=== PATIENT | male | born 1940 | race Caucasian/White ===

== ENCOUNTER 2016-06-27 08:48 | Inpatient (IN) | payer MEDICARE, OTHER ==
[2016-06-27] VITALS (7 sets, daily range): BP systolic 117–134; BP diastolic 67–69; PULSE 61–85; RESP 18–19; TEMP 98.3; Ht 167.6 cm; Wt 47.8 kg
[~2016-06-27] VITALS: Ht 167.6 cm; Wt 47.8 kg
[2016-06-27 09:15] LABS: BASOPHILS % 0.5 % (0.0-2.0); EOSINOPHILS # 0.2 10^3/ul (0.0-0.5); HEMATOCRIT 41.3 % (42.0-52.0); HEMOGLOBIN 14.2 g/dl (14.0-18.0); LYMPHOCYTES # 1.2 10^3/ul (0.8-2.9); LYMPHOCYTES % 25.7 % (15.0-51.0); MEAN CORPUSCULAR HEMOGLOBIN 32.1 pg (29.0-33.0); MEAN CORPUSCULAR HGB CONC 34.4 g/dl (32.0-37.0); MEAN CORPUSCULAR VOLUME 93.2 fl (82.0-101.0); MEAN PLATELET VOLUME 7.4 fl (7.4-10.4); MONOCYTE # 0.5 10^3/ul (0.3-0.9); MONOCYTES % 10.8 % (0.0-11.0); NEUTROPHIL # 2.8 10^3/ul (1.6-7.5); PLATELET COUNT 296 10^3/UL (140-440); RED BLOOD COUNT 4.43 10^6/ul (4.70-6.10); RED CELL DISTRIBUTION WIDTH 13.2 % (11.5-14.5); UNCORRECTED WBC 4.8 10^3/ul (4.8-10.8); WHITE BLOOD COUNT 4.8 10^3/ul (4.8-10.8)
--- NOTE | 2016-06-27 09:22 | RADRPT ---
PROCEDURE: XR Chest. CLINICAL INDICATION: Chest pain TECHNIQUE: Chest AP portable COMPARISON: None available FINDINGS: The mediastinal structures are unremarkable. There is calcification of the thoracic aorta (consiste nt with atherosclerosis). The heart is normal in size and configuration. The pulmonary vascularity is normal. The lung awan are unremarkable. No consolidation is identified. The pleural spaces are unremarkable. The osseous structures are unremarkable. IMPRESSION: Calcification of the thoracic aorta (consistent with atherosclerosis). No evidence for active cardiopulmonary disease. RPTAT: HGDB .Martin Romero MD, Date Time Electronically viewed and signed by .Martin Romero MD, on 06/27/2016 09:22 .B/
[2016-06-27 09:24] LABS: POTASSIUM 3.7 mmol/L (3.5-5.1)
[2016-06-27 09:27] LABS: CONDITION 1; CREATININE 0.7 mg/dl (0.61-1.24)
[2016-06-27 09:28] LABS: CALCIUM 9.2 mg/dl (8.4-10.2)
[2016-06-27 09:33] LABS: INR 0.99; PROTIME 13.1 Sec (12.2-14.2)
[2016-06-27 09:42] LABS: TROPONIN-I 3.18 ng/ml (0.00-0.12)
--- NOTE | 2016-06-27 09:56 | ERA ---
ER Documentation Chief Complaint Date/Time DATE: 06/27/16 TIME: 09 Chief Complaint L SIDE NON PROVOKED CHEST PAIN FOR 1 WK. NO N./V. NO RECDENT URI HPI 75-year-old male presents to the emergency department complaining of chest discomfort for 1 week. Patient states that he has been having a nonspecific, non-provoked left-sided chest discomfort for 1 week. It is not crescendo or increasing. It is associated with no positional change, palpitations, fevers, chills, hemoptysis. He reports the pain is a 6/10. Patient had no preceding symptoms including no cough or sputum production. ROS All systems reviewed and are negative except as per history of present illness. Medications Home Meds Discontinued Reported Medications [None] No Conflict Check 07/11/12 [None] No Conflict Check 04/06/10 Allergies Allergies: Coded Allergies: No Known Allergy (Unverified , 06/27/16) PMhx/Soc History of Surgery: No Anesthesia Reaction: No Hx Neurological Disorder: No Hx Respiratory Disorders: No Hx Cardiac Disorders: No Hx Psychiatric Problems: No Hx Miscellaneous Medical Probl: No Hx Alcohol Use: No Hx Substance Use: No Hx Tobacco Use: No Smoking Status: Never smoker FmHx Noncontributory for chief complaint Physical Exam Vitals Vital Signs Date Time Temp Pulse Resp B/P Pulse Ox O2 Delivery O2 Flow Rate FiO2 06/27/16 09:11 Nasal Cannula 2 06/27/16 09:05 98.3 96 20 138/81 97 Room Air 06/27/16 08:52 97.6 63 20 130/63 99 Physical Exam GENERAL: The patient is well developed and appropriate for usual state of health in no apparent distress HEENT: Pupils equal, round, and reactive to light. EOMI. There is no scleral icterus. NECK: C-spine is soft and supple, there is no meningismus. There is no cervical lymphadenopathy. LUNGS: Clear to auscultation bilaterally. There are no rales, wheezes or rhonchi. HEART: Regular rate and rhythm, no murmurs, clicks, rubs or gallops. ABDOMEN: Soft, non-tender, non-distended. There are bowel sounds in all four quadrants. No rebound or guarding. EXTREMITIES: There is no peripheral cyanosis or edema. No focal swelling or erythema. NEURO: The patient moves all four extremities with 5/5 strength. Cranial nerves II - XII are intact. Normal gait. Alert and oriented SKIN: There is no apparent rash or petechiae. HEME/LYMPHATIC: There is no evidence of excessive bruising or lymphedema. PSYCHIATRIC: The patient does not appear anxious or depressed. Result Diagram: 06/27/16 0900 06/27/16 0900 Results 24 hrs Laboratory Tests Test 06/27/16 09:00 Activated Partial Thromboplast Time 31.0Sec Anion Gap 18 Basophils # 0.010^3/ul Basophils % 0.5% Blood Urea Nitrogen 13mg/dl Calcium Level 9.2mg/dl Carbon Dioxide Level 29mmol/L Chloride Level 101mmol/L Creatinine 0.70mg/dl Eosinophils # 0.210^3/ul Eosinophils % 5.0% Glucose Level 102mg/dl Hematocrit 41.3% Hemoglobin 14.2g/dl INR International Normalized Ratio 0.99 Lymphocytes # 1.210^3/ul Lymphocytes % 25.7% Mean Corpuscular Hemoglobin 32.1pg Mean Corpuscular Hemoglobin Concent 34.4g/dl Mean Corpuscular Volume 93.2fl Mean Platelet Volume 7.4fl Monocytes # 0.510^3/ul Monocytes % 10.8% Neutrophils # 2.810^3/ul Neutrophils % 58.0% Nucleated Red Blood Cells # 0.010^3/ul Nucleated Red Blood Cells % 0.0/100WBC Platelet Count 54002^3/UL Potassium Level 3.7mmol/L Prothrombin Time 13.1Sec Prothrombin Time Ratio 1.0 Red Blood Count 4.4310^6/ul Red Cell Distribution Width 13.2% Sodium Level 144mmol/L Troponin I 3.180ng/ml White Blood Count 4.810^3/ul Current Medications Medications (Trade) Dose Ordered Sig/Gonzalo Route PRN Reason Start Time Stop Time Status Last Admin Dose Admin Aspirin (Aspirin) 325 mg ONCE ONCE PO 06/27/16 10:00 06/27/16 10:01 Procedures/MDM Patient was taken to a room, seen and evaluated. Comfort measures were initiated. Diagnostic tests were ordered and reviewed. 3 LEAD RHYTHM STRIP: Normal sinus rhythm without ectopy EK lead EKG reviewed by myself: Normal Sinus Rhythm Normal [place] and intervals Minimal ST and T-wave changes in leads II, III, and aVF with less than [address] elevation. No reciprocal changes noted. Impression: Abnormal EKG consistent with possible inferior ischemia 12-lead EKG was then repeated and interpreted by myself: Normal Sinus Rhythm Normal [place] and intervals Minimal ST and T-wave changes in leads II, III, and aVF with less than [address] elevation. No reciprocal changes noted. Impression: Abnormal EKG consistent with possible inferior ischemia RADIOLOGY: reviewed with the radiologist CONSULTATION: Dr. Mckeon was consulted after review of the first and repeat EKG. These were faxed to him. We were in agreement that the patient would not be taken to PCI immediately, but would be done urgently. No heparin or lovenox was requested. Stat ECHO was done. hospitalist was notified for admission REEVALUATION: Patient remained comfortable and hemodynamically stable in the emergency department MEDICAL DECISION MAKING: Patient presents with chest pain of uncertain etiology. Differential diagnosis considered includes acute myocardial infarction , pulmonary embolism, as well as vascular and pulmonary concerns. I have reviewed the patient's clinical risk factors, EKG, lab studies and imaging. At this time, patient's EKG is consistent and concerning for inferior ischemic changes and his troponin is elevated after 1 week of pain. In consultation with the insurance claim approver, patient will be taken urgently to the Electric Engine Mechanic for further intervention and study. Departure Diagnosis: Primary Impression: Non-STEMI (non-ST elevated myocardial infarction) MILTON DURON Jun 27, 2016 09:56
[2016-06-27] MEDS ORDERED: ASPIRIN 325 MG TAB PO ONE (10:00)
--- NOTE | 2016-06-27 11:50 | RADRPT ---
Echocardiogram Report Patient Name: ADEOLA ROBERT Gender: Male Date: 1940 Study Date: 27-Jun-2016 Paper Cup Machine Operator: Jeannine Almonte RDCS Location: [facility] Ref. Physician: MILTON DURON Quality: Adequate Procedures: Transthoracic echocardiogram with complete 2D, M-Mode, and doppler examination. Indications: NSTEMI. 2D/M Mode Doppler Measurement Value Normal Ranges Measurement Value Normal Ranges LVIDd 2D 5.2 3.5 - 5.6 cm AV Peak Inder 1.2 m/sec LVIDs 2D 3.3 2.1 - 4.1 cm AV Peak PG 5.5 mmHg LVPWd 2D 0.8 0.6 - 1.1 cm AI Peak PG 33.5 mmHg IVSd 2D 0.8 0.6 - 1.1 cm AI Peak Inder 2.9 m/sec AoR Diam 2D 3.0 2.0 - 3.7 cm AI PHT 488.3 msec EDV 2D 127.2 cm3 LVOT Peak Inder 1.0 m/sec ESV 2D 35.4 cm3 LVOT Peak PG 3.8 mmHg LA Dimen 2D 3.1 2.3 - 4.0 cm MV E Peak Inder 0.7 m/sec MV A Peak Inder 0.8 m/sec MV E/A 0.9 MV Decel Time 123 msec MV Decel [place] 6 MV E/A 0.9 TR Peak Inder 2.3 m/sec TR Peak PG 21.4 mmHg RVSP 24.0 mmHg Findings Left Ventricle: Lower limits of normal systolic function. Normal left ventricular cavity size. Normal left ventricular wall thickness. Ejection fraction is visually estimated at 50 %. Tissue Doppler/Mitral Doppler indices are consistent with impaired relaxation (Stage I diastolic dysfunction). Right Ventricle: Normal right ventricular size. Normal right ventricular systolic function. Left Atrium: The left atrium is normal in size. Right Atrium: The right atrium is normal in size. Mitral Valve: Normal appearance and function of the mitral valve with trace physiologic regurgitation. Aortic Valve: No hemodynamically significant aortic stenosis by doppler. Aortic cusps appear mildly calcified. Mild aortic valve regurgitation. Tricuspid Valve: Normal appearance of the tricuspid valve. Estimated peak PA systolic pressure 24 mmHg. There is trace tricuspid regurgitation. Pulmonic Valve: Pulmonic valve not well visualized. Pericardium: Normal pericardium with no significant pericardial effusion. Aorta: Normal aortic root. IVC: Normal size and normal respiratory collapse consistent with normal right atrial pressure. Conclusions 1.Lower limits of normal systolic function. Normal left ventricular cavity size. Normal left ventricular wall thickness. Ejection fraction is visually estimated at 50 %with mild apical inferior and lateral wall hyokinesis .. Tissue Doppler/Mitral Doppler indices are consistent with impaired relaxation (Stage I diastolic dysfunction). 2.Normal appearance and function of the mitral valve with trace physiologic regurgitation. 3.No hemodynamically significant aortic stenosis by doppler. Aortic cusps appear mildly calcified. Mild aortic valve regurgitation. 4.Normal appearance of the tricuspid valve. Estimated peak PA systolic pressure 24 mmHg. There is trace tricuspid regurgitation. Electronically Signed By: Remi Mckeon 27-Jun-2016 11:49:36 -0800 Patient Name: ADEOLA ROBERT Study Date: 27-Jun-2016 [id number]
[2016-06-27] MEDS ORDERED: HEPARIN 1000 UNITS/ML 10 ML INJ IV ONE (12:00)
[2016-06-27] MEDS ORDERED: SOD CHLORIDE 0.45% 1,000 ML IV SCH (12:03)
[2016-06-27] MEDS ORDERED: ONDANSETRON 4 MG TAB PO PRN (12:30)
[2016-06-27] MEDS ORDERED: ACETAMINOPHEN 325 MG TAB PO PRN ×2 (12:30→14:30)
[2016-06-27] MEDS ORDERED: DOCUSATE SODIUM 100 MG CAP PO PRN (12:30)
[2016-06-27] MEDS ORDERED: NITROGLYCERIN (SL) 0.4 MG TAB SL PRN (12:30)
[2016-06-27] MEDS ORDERED: LORAZEPAM 2 MG INJ IV PRN (12:30)
[2016-06-27] MEDS ORDERED: morphine 2 MG INJ IV PRN ×2 (12:30→14:30)
[2016-06-27] MEDS ORDERED: BISACODYL 10 MG SUPP PR PRN (12:30)
--- NOTE | 2016-06-27 12:57 | CONS ---
DATE OF ADMISSION: 06/27/2016 DATE OF CONSULTATION: 06/27/2016 REFERRING PHYSICIAN:. ____ REASON FOR CONSULTATION: Acute myocardial infarction. CHIEF COMPLAINT: Left-sided chest pain. HISTORY OF PRESENT ILLNESS: History was obtained from the patient, discussion with ____ and review of the chart. This is a very pleasant 75-year-old gentleman with history of lung disease for many y ears who has had left-sided chest pain over the past week. The patient is an extremely poor histori an, difficult to get a good history from him. Said he has had intermittent chest pain. Could not e xplain an exacerbating factor to it. The pain is very mild, 1/. Currently, he is chest pain free , in fact. He came to the emergency room with tachycardia. There were some nonspecific ST changes with MO depression noted in inferior lead and the EKG. The EKG was reviewed. Patient was chest ian n-free. Labs were reviewed. Troponin came out positive. Echocardiogram was also done which was re viewed, and no evidence of pericardial effusion noted to be concerned about pericarditis. It was a technically difficult study but appeared to have some minimal wall motion abnormality noted on echo. PAST MEDICAL HISTORY: History of dyslipidemia as well as history of lung disease. Detail is unclea r. MEDICATIONS AT HOME: None. SOCIAL HISTORY: He does not smoke or drink. FAMILY HISTORY: Denies any history of coronary artery disease. ALLERGIES: NO REPORTED DRUG ALLERGIES. REVIEW OF SYSTEMS: He denied all other except for above-mentioned. PHYSICAL EXAMINATION: GENERAL: Appeared to be calm, in no acute distress. VITAL SIGNS: Temperature 98.3, heart rate of 76, blood pressure 124/73, respiration rate of 20, sat urating 98%. HEENT: Normocephalic, atraumatic. No acute distress. Pupils equal and round. CARDIOVASCULAR: Regular rate and rhythm. Systolic murmur, grade I. PULMONARY: With no wheezes or rhonchi. GASTROINTESTINAL: Soft, nontender. EXTREMITIES: No significant lower extremity edema. NEUROLOGIC: Awake, alert, oriented x3. PSYCHIATRIC: Calm, pleasant. LABORATORY: Sodium 144, potassium 3.7, BUN of 13, creatinine 0.7, glucose 102. Troponin of 3.18. WBC of 4.8, hemoglobin 14.2, platelets 296. Chest x-ray was personally reviewed, which shows calcif ication of thoracic aorta. No evidence of acute cardiopulmonary disease. Echocardiogram was person ally reviewed, which was a technically difficult study, which showed normal LV size and ejection fra ction of probably about 50%. There is apical inferior and some lateral wall, possibly mild hypokine sis, although a technically difficult study. No pericardial effusion noted. EKG ____ was personally reviewed. Initially showed sinus tachycardia with MO depression inferiorly. ASSESSMENT AND PLAN: 1. Cqf-VM-rgedsybok myocardial infarction. 2. Chest pain secondary to above. 3. Borderline hypertension. 4. History of dyslipidemia. 5. History of "lung disease". RECOMMENDATIONS: Aspirin has been given. Heparin bolus will be given. Given his symptoms and abno rmal troponin, the patient will be taken to the cardiac catheterization for left heart catheterizati on, coronary angiogram, ____ percutaneous coronary intervention today as soon as the laborer car barn is keo ilable. Currently an intervention is being done. ____ was discussed with the patient through a tra nslator in detail. Risks included laryngeal infection, vascular complication, bleeding complication , ME, stroke, arrhythmia, renal failure, etc., discussed with the patient. Patient consented to pro cedure. Dictated By: JOSÉ MIGUEL HUTTON/NICOLE Conf#: [id number] DID#: [id number]
[2016-06-27] MEDS ORDERED: SOD CHLORIDE 0.9% 1,000 ML IV SCH (14:15)
[2016-06-27] MEDS ORDERED: OXYCODONE/ACETAMINOPHEN (5/325) TAB PO PRN (14:30)
[2016-06-27 14:50] LABS: CK-MB 18.7 ng/ml (0.0-2.4); TROPONIN-I 2.41 ng/ml (0.00-0.12)
--- NOTE | 2016-06-27 14:56 | SP ---
DATE OF PROCEDURE: 06/27/2016 PROCEDURE: 1. Left heart catheterization. 2. Selective right and left coronary angiography. COLLEGE TUTOR: José Miguel Mckeon MD INDICATIONS: This is a 75-year-old gentleman who presented with chest pain, abnormal EKG, abnormal troponin of 3.18, consistent with non-ST elevation myocardial infarction. The patient's echo also s hows wall motion abnormalities as well. FINDINGS: 1. Left main coronary artery is normal. 2. Left anterior descending is a vessel, wraps around the apex, is normal. 3. Left circumflex artery is a moderate sized vessel, is nondominant. It has no significant stenos is. 4. Ramus intermedius is a small vessel with probably about 50% ostial stenosis. 5. Right coronary artery is a large, dominant vessel. Ostially, proximally has about 40% to 50% st enosis versus spasm. 6. LV systolic pressure was 133, LVEDP of 14, aortic pressure with pullback is 118/53. LV gram vito wed ejection fraction of probably about 45% to 50% with apical wall, especially inferior apical wall hypokinesis. DESCRIPTION OF PROCEDURE: Written informed consent was obtained after risks and benefits were discu ssed with the patient in detail. The patient went to the cardiac catheterization technologist and placed in the supine position . Right and left groins were prepped and draped in sterile fashion. Right groin area was anestheti zed with 1% lidocaine. Using modified Seldinger technique, 6 [place] sheath was placed in the right femoral artery. A JL4 catheter was advanced and engaged in the left main coronary artery and angiog susan was obtained. JR4 catheter was advanced and engaged in the right coronary artery and angiogram was obtained. Pigtail was advanced and engaged in the left main, hemodynamics recorded. LV gram pe rformed. Pullback aortic pressure was measured. Catheter and Glidewire were removed. Sheath is to be removed soon. IMMEDIATE COMPLICATIONS: None. CONCLUSION: Coronary angiography showed no significant flow-limiting obstruction. Left ventriculog susan showed wall motion abnormality consistent with possible myopericarditis versus Takotsubo disease versus others. RECOMMENDATIONS: Medical therapy. Dictated By: JOSÉ MIGUEL HUTTON/NICOLE Conf#: [id number] DID#: [id number] CC: VIRGILIO PERLA MD;*[facility]*
--- NOTE | 2016-06-27 16:25 | HP ---
DATE OF ADMISSION: 06/27/2016 MIXING ROLL OPERATOR: Cardiology. CHIEF COMPLAINT: Chest discomfort x1 week. HISTORY OF PRESENT ILLNESS: This is a very pleasant 75-year-old gentleman with a past medical histo ry of pneumonia at a young age, prostate cancer, status post total prostatectomy, status post chemot herapy [id number] 10years ago, who presents to [facility] Emergency Room having 1 week of ches t discomfort which was not associated with any shortness of breath or diaphoresis. Upon arrival to the emergency room the patient's EKG showed normal sinus rhythm, normal axis, minimal ST and T-wave changes in leads II, III, and aVF, and less than 1-mm ST elevation. The patient's troponin was foun d to be elevated at 3.180. Cardiology was consulted. The patient was taken to the cardiac catheter ization laboratory, where he was treated with aspirin, heparin and normal saline. During the course of the laborer concrete paving, the patient was found to have normal coronaries, with wall motion abnormality, with possible myopericarditis or Takotsubo. The patient has been transferred to the recovery room and at this time the patient has been admitted to the telemetry floor for further evaluation and treatment . At this time the patient denies having any chest pain, shortness of breath, nausea, vomiting or d iarrhea. No headache, dizziness, numbness, no change in visual acuity, diplopia, or photophobia. N o abdominal pain, no neck pain, no restricted range of motion. No recent travel history. No sick c ontacts. A 12 review of systems has been found to be negative. PAST MEDICAL AND SURGICAL HISTORY: As above, per HPI. MEDICATIONS: None. SOCIAL HISTORY: Negative x3 for smoking, alcohol and illicit drugs. FAMILY HISTORY: Positive for hypertension. No history of coronary artery disease or heart attack. REVIEW OF SYSTEMS: As above, per HPI, otherwise 12 review of systems was found to be negative. PHYSICAL EXAMINATION: VITAL SIGNS: Temperature 98.3, pulse 71, respirations 19, blood pressure 113/69, saturation 97% on room air. GENERAL APPEARANCE: The patient is lying in bed comfortably, without any distress. He is awake, al ert, oriented. He is able to answer my questions properly. EYES AND ENT: Conjunctivae and lids are normal. Pupils are normal. Extraocular is normal. Hearin g is normal. Lips and gums are normal. Mucous is moist. NECK: Supple. Trachea is midline. No lymphadenopathy. RESPIRATORY: Respiratory effort is normal. Clear to auscultate bilaterally. CARDIOVASCULAR: Normal S1, S2. Regular rhythm and rate. No murmur, no bruits, no edema. Peripher al pulses and radial pulses are palpable. Cap refill is normal. CHEST: Normal expansion of thorax during inspiration. GASTROINTESTINAL: Abdomen is soft, nontender, not distended. Bowel sounds present. No guarding, n o rebound. GENITOURINARY: Deferred. MUSCULOSKELETAL: Upper and lower extremities are within normal limits. Full range of motion. NEUROLOGIC: Cranial nerves II through XII are grossly intact. PSYCHIATRIC: Normal judgment and insight. Alert and oriented x3. Mood and affect is normal. LABORATORY WORK: Sodium 144, potassium 3.7, chloride 101, bicarbonate 29, BUN 13, creatinine 0.70, glucose 102, calcium 9.2. Creatinine kinase 1,277. Troponin 3.180 and 2.410. WBC 4.8, hemoglobin 1 4.3, hematocrit 41.3, platelets 296. ASSESSMENT AND PLAN: 1. Chest pain, likely secondary to myopericarditis versus Takotsubo. The patient is status post le ft heart catheterization, with normal coronaries. Continue aspirin and beta kathe. The patient at this time is asymptomatic, without any chest pain. 2. Mild rhabdomyolysis with a creatine kinase of 1,277. Will place the patient on IV fluid. Will f ollow up CPK q.6h. 3. History of prostate cancer, status post prostatectomy. Stable. 4. Will continue to monitor the patient closely. 5. Further recommendations, management and treatment as per clinical course. 6. Deep venous thrombosis prophylaxis. On heparin. 7. For gastrointestinal prophylaxis, on a proton pump inhibitor. Total amount of time spent on evaluation of patient on admission workup was 40 minutes. Dictated By: VIRGILIO KELLOGG/NICOLE Conf#: [id number] DID#: [id number]
[2016-06-27] MEDS: METOPROLOL (XL) 25 MG TAB PO SCH (18:35)
[2016-06-27] MEDS ORDERED: ATORVASTATIN 40 MG TAB PO SCH (21:00)
[2016-06-27 21:09] LABS: CK-MB 20.8 ng/ml (0.0-2.4); TROPONIN-I 2.7 ng/ml (0.00-0.12)
[2016-06-27] MEDS: HEPARIN 5,000 UNIT/0.5 ML SYG SC SCH (22:46)
[2016-06-28] VITALS (11 sets, daily range): BP systolic 111–134; BP diastolic 57–64; PULSE 68–81; RESP 16–20
[2016-06-28 01:59] LABS: CK-MB 16.2 ng/ml (0.0-2.4); TROPONIN-I 2.41 ng/ml (0.00-0.12)
[2016-06-28] MEDS: ASPIRIN (EC) 81 MG TAB PO SCH (09:58)
[2016-06-28] MEDS: PANTOPRAZOLE (EC) 40 MG TAB PO SCH (09:58)
[2016-06-28] MEDS: METOPROLOL (XL) 25 MG TAB PO SCH (09:59)
[2016-06-28] MEDS: HEPARIN 5,000 UNIT/0.5 ML SYG SC SCH ×2 (10:02→21:16)
[2016-06-28 10:10] LABS: BASOPHILS % 0.3 % (0.0-2.0); EOSINOPHILS # 0.2 10^3/ul (0.0-0.5); EOSINOPHILS % 3.8 % (0.0-7.0); HEMOGLOBIN 12.8 g/dl (14.0-18.0); LYMPHOCYTES # 0.6 10^3/ul (0.8-2.9); LYMPHOCYTES % 15.3 % (15.0-51.0); MEAN CORPUSCULAR HEMOGLOBIN 32.1 pg (29.0-33.0); MEAN CORPUSCULAR HGB CONC 34.5 g/dl (32.0-37.0); MEAN CORPUSCULAR VOLUME 93.2 fl (82.0-101.0); MEAN PLATELET VOLUME 7.5 fl (7.4-10.4); MONOCYTE # 0.3 10^3/ul (0.3-0.9); MONOCYTES % 6.9 % (0.0-11.0); NEUTROPHILS % 73.7 % (39.0-77.0); PLATELET COUNT 278 10^3/UL (140-440); RED BLOOD COUNT 3.97 10^6/ul (4.70-6.10); RED CELL DISTRIBUTION WIDTH 13.3 % (11.5-14.5); UNCORRECTED WBC 4.1 10^3/ul (4.8-10.8); WHITE BLOOD COUNT 4.1 10^3/ul (4.8-10.8)
[2016-06-28 10:16] LABS: CONDITION 1
[2016-06-28 10:33] LABS: ALBUMIN 3.6 g/dl (3.3-4.9)
[2016-06-28 10:34] LABS: POTASSIUM 3.7 mmol/L (3.5-5.1)
[2016-06-28 10:35] LABS: CHOL/HDL RATIO 3.7 RATIO; MAGNESIUM 1.8 mg/dl (1.7-2.5)
[2016-06-28 10:36] LABS: ALBUMIN/GLOBULIN RATIO 1.12; BILIRUBIN,INDIRECT 0.2 mg/dl (0-1.1); BILIRUBIN,TOTAL 0.2 mg/dl (0.2-1.3); CREATININE 0.59 mg/dl (0.61-1.24); TOTAL PROTEIN 6.8 g/dl (6.1-8.1)
[2016-06-28 10:37] LABS: CALCIUM 8.6 mg/dl (8.4-10.2)
[2016-06-28 11:15] LABS: THYROID STIMULATING HORMONE 0.759 MIU/L (0.465-4.680)
--- NOTE | 2016-06-28 14:42 | PN ---
Date/Time of Note Date/Time of Note DATE: 06/28/16 TIME: 14:37 Assessment/Plan Lines/Catheters IV Catheter Type (from [facility]): Peripheral IV Urinary Cath still in place: No Assessment/Plan Chief Complaint/Hosp Course Assessment and plan 1. Chest pain. Patient still with elevated troponin. Status post left heart catheterization with normal reported coronaries. [employer] Operator following. Suspect myopericarditis vs. Takotsubo. Continue on antiplatelet and beta kathe. Follow-up with cardiology recommendations 2. Mild rhabdomyolysis suspect secondary to #1. Continue on IV hydration 3. Prostate cancer. Patient is status post prostatectomy. Patient be followed up as outpatient for this DVT prophylaxis: Heparin GERD prophylaxis: PPI Disposition and plan: Still with elevated troponin. Follow-up with cardiology recommendations. Discharge when medically stable and cleared by consultants Discussed plan fo care with Dr. Mcmillan Problems: Subjective 24 Hr Interval Summary Free Text/Dictation Denies any chest pain. Appears comfortable at this time. Exam/Review of Systems Vital Signs Vitals Vital Signs Date Time Temp Pulse Resp B/P Pulse Ox O2 Delivery O2 Flow Rate FiO2 06/28/16 12:24 69 06/28/16 11:52 97.8 18 113/58 95 06/27/16 15:05 2.0 06/27/16 14:20 Room Air Intake and Output 06/27/16 06/27/16 06/28/16 14:59 22:59 06:59 Intake Total 240 ml Output Total 800 ml Balance -560 ml Exam General: No acute signs or symptoms of distress Eyes: pupils equal round, Anicteric sclera Neck: Supple nontender, no JVD Cardiac: S1, S2 auscultated, regular rhythm and rate Pulmonary: No coarse rhonchi or breathing auscultated GI: Abdomen soft nontender nondistended, bowel sounds active Extremities: No edema bilateral lower extremities Skin: Clean dry and intact Neurologic: Alert to person place and time and situation Results Result Diagram: 06/28/16 0948 06/28/16 0948 Results 24 hrs Laboratory Tests Test 06/27/16 20:16 06/28/16 00:45 06/28/16 09:48 Creatine Kinase 1148 H 1068 H Creatine Kinase Index 1.8 1.5 Creatinine Kinase MB (Mass) 20.80 H 16.20 H Troponin I 2.700 *H 2.410 *H Alanine Aminotransferase (ALT/SGPT) 44 Albumin 3.6 Albumin/Globulin Ratio 1.12 Alkaline Phosphatase 95 Anion Gap 14 Aspartate Amino Transf (AST/SGOT) 73 H Basophils # 0.0 Basophils % 0.3 Blood Urea Nitrogen 13 Calcium Level 8.6 Carbon Dioxide Level 27 Chloride Level 103 Cholesterol Level 170 Cholesterol/HDL Ratio 3.7 Creatinine 0.59 L Direct Bilirubin 0.00 Eosinophils # 0.2 Eosinophils % 3.8 Free Thyroxine 1.22 Globulin 3.20 Glucose Level 162 HDL Cholesterol 45 Hematocrit 37.0 L Hemoglobin 12.8 L Indirect Bilirubin 0.2 LDL Cholesterol, Calculated 105 Lymphocytes # 0.6 L Lymphocytes % 15.3 Magnesium Level 1.8 Mean Corpuscular Hemoglobin 32.1 Mean Corpuscular Hemoglobin Concent 34.5 Mean Corpuscular Volume 93.2 Mean Platelet Volume 7.5 Monocytes # 0.3 Monocytes % 6.9 Neutrophils # 3.0 Neutrophils % 73.7 Nucleated Red Blood Cells # 0.0 Nucleated Red Blood Cells % 0.0 Platelet Count 278 Potassium Level 3.7 Red Blood Count 3.97 L Red Cell Distribution Width 13.3 Sodium Level 140 Thyroid Stimulating Hormone (TSH) 0.759 Total Bilirubin 0.2 Total Protein 6.8 Triglycerides Level 100 White Blood Count 4.1 L Medications Medications Current Medications Ondansetron HCl (Zofran Tab) 4 mg Q6H PRN PO NAUSEA AND/OR VOMITING; Start at 12:30 Nitroglycerin (Nitroglycerin (Sl Tab) 0.4 Mg) 1 tab Q5M PRN SL CHEST PAIN; Start 06/27/16 at 12:30 Acetaminophen (Tylenol Tab) 650 mg Q6H PRN PO PAIN LEVEL 1-3 OR FEVER; Start at 12:30 Morphine Sulfate (morphine) 2 mg Q4H PRN IV PAIN LEVEL 7-10; Start 06/27/16 at 12:30 Lorazepam (Ativan) 1 mg Q8H PRN IV ANXIETY; Start 06/27/16 at 12:30 Docusate Sodium (Colace) 100 mg Q12H PRN PO CONSTIPATION; Start 06/27/16 at 12: 30 Bisacodyl (Dulcolax Supp) 10 mg DAILY PRN NV CONSTIPATION; Start 06/27/16 at 12 :30 Pantoprazole (Protonix Tab) 40 mg DAILY@06 PO Last administered on 06/28/16 09 :58; Admin Dose 40 MG; Start 06/28/16 at 06:00 Heparin Sodium (Porcine) (Heparin (5000 Units/0.5 ml)) 5,000 unit Q12 SC Last administered on 06/28/16 10:02; Admin Dose 5,000 UNIT; Start 06/27/16 at 21:00 Miscellaneous Information (* Miscellaneous Pharmacy Order) Hold all Metformin ... ONCE XX ; Start 06/27/16 at 14:30; Stop 06/29/16 at 14:29 Aspirin (Halfprin) 81 mg DAILY PO Last administered on 06/28/16 09:58; Admin Dose 81 MG; Start 06/28/16 at 09:00 Acetaminophen (Tylenol Tab) 650 mg Q4H PRN PO NON-CARDIAC PAIN LEVEL 1-3; Start 06/27/16 at 14:30 Oxycodone/ Acetaminophen (Percocet (5/ 325)) 1 tab Q4H PRN PO REPORTED NON- CARDIAC PAIN 4-7; Start 06/27/16 at 14:30 Morphine Sulfate (morphine) 1 mg Q1H PRN IV PAIN NOT RELIEVED BY OTHERS; Start 06/27/16 at 14:30 Metoprolol Succinate (Toprol Xl) 12.5 mg DAILY PO Last administered on 09:59; Admin Dose 12.5 MG; Start 06/27/16 at 14:30 JUDIT RODRIGUEZ Jun 28, 2016 14:42
[2016-06-28] MEDS: SOD CHLORIDE 0.9% 1,000 ML IV SCH (15:00)
--- NOTE | 2016-06-28 17:41 | PN ---
DATE: 06/28/2016 CARDIOLOGY FOLLOWUP SUBJECTIVE: Discussed with the staff. Rhythm strip was reviewed. The patient remains in sinus rhy thm. No chest pain or pressure, no palpitations. ____, no groin pain, no bleeding. MEDICATIONS: Reviewed. PHYSICAL EXAMINATION: VITAL SIGNS: Temperature 97.1, heart rate of 70, blood pressure 190/58, respiration rate of 18, sat urating 97%. HEENT: Normocephalic, atraumatic. Pupils are equal and round. CARDIOVASCULAR: Regular rate and rhythm. PULMONARY: With no wheezes heard. GASTROINTESTINAL: Soft, nontender. EXTREMITIES: No significant lower extremity edema. NEUROLOGIC: Awake and alert. PSYCHIATRIC: Calm, pleasant. VASCULAR: ____, no bleeding, no hematoma, no bruit. LABORATORY: WBC of 4.1, hemoglobin 12.8, platelets 78. Sodium 140, potassium 3.7, BUN of 13, creat inine 0.59, glucose 169. Troponin has come down to 2.4 with a CK of 1068. MB fraction of 16.2. Ch olesterol 170, LDL 105, HDL of 45. ASSESSMENT AND PLAN: 1. Chest pain has resolved. 2. Mildly abnormal troponin, probably related to myopericarditis. 3. 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 4. History of prostate cancer, status post prostatectomy. RECOMMENDATIONS: We will continue with the current cardiac care. Off of statin due to his elevated CK. Discharge planning is in process. The patient was scheduled for outpatient followup with me. Dictated By: JOSÉ MIGUEL HUTTON/NICOLE Conf#: [id number] DID#: [id number]
[2016-06-29] VITALS (9 sets, daily range): BP systolic 98–151; BP diastolic 44–69; PULSE 60–76; RESP 18–20
[2016-06-29] MEDS: SOD CHLORIDE 0.9% 1,000 ML IV SCH (04:13)
[2016-06-29] MEDS: PANTOPRAZOLE (EC) 40 MG TAB PO SCH (05:17)
[2016-06-29 07:30] LABS: POTASSIUM 4.1 mmol/L (3.5-5.1)
[2016-06-29 07:33] LABS: CREATININE 0.61 mg/dl (0.61-1.24)
[2016-06-29 07:34] LABS: CALCIUM 8.2 mg/dl (8.4-10.2); MAGNESIUM 1.9 mg/dl (1.7-2.5)
[2016-06-29 07:35] LABS: BASOPHILS % 0.4 % (0.0-2.0); EOSINOPHILS # 0.2 10^3/ul (0.0-0.5); HEMATOCRIT 35.2 % (42.0-52.0); HEMOGLOBIN 12.1 g/dl (14.0-18.0); LYMPHOCYTES % 20.7 % (15.0-51.0); MEAN CORPUSCULAR HEMOGLOBIN 32.3 pg (29.0-33.0); MEAN CORPUSCULAR HGB CONC 34.5 g/dl (32.0-37.0); MEAN CORPUSCULAR VOLUME 93.6 fl (82.0-101.0); MEAN PLATELET VOLUME 7.9 fl (7.4-10.4); MONOCYTE # 0.4 10^3/ul (0.3-0.9); MONOCYTES % 8.7 % (0.0-11.0); NEUTROPHIL # 3.1 10^3/ul (1.6-7.5); NEUTROPHILS % 65.2 % (39.0-77.0); PLATELET COUNT 261 10^3/UL (140-440); RED BLOOD COUNT 3.76 10^6/ul (4.70-6.10); RED CELL DISTRIBUTION WIDTH 13.3 % (11.5-14.5); UNCORRECTED WBC 4.7 10^3/ul (4.8-10.8); WHITE BLOOD COUNT 4.7 10^3/ul (4.8-10.8)
[2016-06-29 07:41] LABS: CONDITION 1
[2016-06-29] MEDS: ASPIRIN (EC) 81 MG TAB PO SCH (08:34)
[2016-06-29] MEDS: METOPROLOL (XL) 25 MG TAB PO SCH (08:35)
[2016-06-29] MEDS: HEPARIN 5,000 UNIT/0.5 ML SYG SC SCH (08:35)
[2016-06-29] MEDS ORDERED: METO25TA7 PO (12:45)
[2016-06-29] MEDS ORDERED: ASPI-664 PO (12:45)
[2016-06-29] MEDS ORDERED: PANT40TA4 PO (12:45)
--- NOTE | 2016-06-29 14:07 | PDOCDIS ---
Discharge Instructions DIAGNOSIS Discharge Diagnosis: 1. chest pain suspect secondary to myopericarditis CONDITION Patient Condition: Stable HOME CARE INSTRUCTIONS: Diet Instructions: Low Fat /CholesterolSpecial Diet: 2 gms FOLLOW UP/APPOINTMENTS Appointments 1. Follow up with Dr. Remi Mckeon in one week 2. Follow up with your primary care provider in 1-2 weeks OTHER ORDERS: Other Orders: 1. Call 911 inferior worsening chest pain insurance of breath REGIDOJUDIT Stern Jun 29, 2016 14:07
--- NOTE | 2016-06-29 14:13 | DS ---
Date/Time of Note Date/Time of Note DATE: 06/29/16 TIME: 14:08 Discharge Summary Admission/Discharge Info Admit Date/Time Jun 27, 2016 at 15:30 Discharge Date/Time Final Diagnosis 1. Chest pain. suspect secondary to myopericarditis. 2. Mild rhabdomyolysis suspect secondary to #1. 3. hx Prostate cancer. Patient Condition: Stable Consults 1. Dr. Khalil [facility] Course This is a 75-year-old male with history of pneumonia, prostate cancer, status post prostatectomy, status post chemotherapy times one month 10 years ago who came to [facility] after reports of one week of chest discomfort. He reported he did not have any shortness of breath or diaphoresis with this. On examination he did have EKG that showed normal sinus rhythm and minimal ST and T-wave changes in leads 23 and aVF. He was found to have a troponin of 3.1. Was seen by environmental emergencies assistant for this issue. Patient did have cardiac catheterization no surrounding to have normal coronaries with wall motion abnormality. Patient was with suspect myopericarditis. Patient was optimized medically. He was placed on analgesics. We did continue him on beta kathe as well as antiplatelet therapy. He was noted with some mild rhabdomyolysis and for this he was not placed on statin medication. After review by environmental emergencies assistant, patient was likely with myopericarditis. He did improve during his course of stay. He did report resolution of his chest pain. He was instructed to follow-up with staff counsel within a week. The plan of care was discussed with the patient and patient did verbalize understanding. On the day of discharge patient was in stable condition Discussed plan of care with Dr. Norton Discharge process time is 40 minutes Disposition: Home Home Meds Active Scripts Pantoprazole* (Pantoprazole*) 40 Mg Tablet., 40 MG PO DAILY@06 for 30 Days Prov:JUDIT RODRIGUEZ 06/29/16 Metoprolol Succinate* (Toprol XL*) 25 Mg Tab.sr.24h, 12.5 MG PO DAILY for 30 Days Prov:JUDIT RODRIGUEZ 06/29/16 Aspirin* (Aspirin* EC) 81 Mg Tablet., 81 MG PO DAILY for 30 Days Prov:JUDIT RODRIGUEZ 06/29/16 Discontinued Reported Medications [None] No Conflict Check 07/11/12 [None] No Conflict Check 04/06/10 Follow-up Plan CONDITION Patient Condition: Stable HOME CARE INSTRUCTIONS: Diet Instructions: Low Fat /CholesterolSpecial Diet: 2 gms FOLLOW UP/APPOINTMENTS Appointments 1. Follow up with Dr. Remi Mckeon in one week 2. Follow up with your primary care provider in 1-2 weeks OTHER ORDERS: Other Orders: 1. Call 911 inferior worsening chest pain insurance of breath Pending Labs Laboratory Tests Test 06/28/16 14:30 06/29/16 05:10 C-Reactive Protein 3.0mg/dl (0.0-0.9) Erythrocyte Sedimentation Rate 53mm/Hr (0-20) Anion Gap 14 (8-16) Basophils # 0.010^3/ul (0.0-0.1) Basophils % 0.4% (0.0-2.0) Blood Urea Nitrogen 13mg/dl (7-20) Calcium Level 8.2mg/dl (8.4-10.2) Carbon Dioxide Level 24mmol/L (21-31) Chloride Level 107mmol/L (97-110) Creatinine 0.61mg/dl (0.61-1.24) Eosinophils # 0.210^3/ul (0.0-0.5) Eosinophils % 5.0% (0.0-7.0) Glucose Level 92mg/dl (70-220) Hematocrit 35.2% (42.0-52.0) Hemoglobin 12.1g/dl (14.0-18.0) Lymphocytes # 1.010^3/ul (0.8-2.9) Lymphocytes % 20.7% (15.0-51.0) Magnesium Level 1.9mg/dl (1.7-2.5) Mean Corpuscular Hemoglobin 32.3pg (29.0-33.0) Mean Corpuscular Hemoglobin Concent 34.5g/dl (32.0-37.0) Mean Corpuscular Volume 93.6fl (82.0-101.0) Mean Platelet Volume 7.9fl (7.4-10.4) Monocytes # 0.410^3/ul (0.3-0.9) Monocytes % 8.7% (0.0-11.0) Neutrophils # 3.110^3/ul (1.6-7.5) Neutrophils % 65.2% (39.0-77.0) Nucleated Red Blood Cells # 0.010^3/ul (0.0-0.0) Nucleated Red Blood Cells % 0.0/100WBC (0.0-0.0) Platelet Count 97480^3/UL (140-440) Potassium Level 4.1mmol/L (3.5-5.1) Red Blood Count 3.7610^6/ul (4.70-6.10) Red Cell Distribution Width 13.3% (11.5-14.5) Sodium Level 141mmol/L (135-144) Troponin I 1.240ng/ml (0.00-0.12) White Blood Count 4.710^3/ul (4.8-10.8) JUDIT RODRIGUEZ Jun 29, 2016 14:13
--- NOTE | 2016-06-29 21:49 | RADRPT ---
Vent Rate: 79 bpm RR Interval: 0 msec MN Interval: 166 msec QRS Duration: 96 msec QT Interval: 392 msec QTC Interval: 449 msec P-R-T [place]: 100 - 93 - 77 degrees Suspect arm lead reversal, interpretation assumes no reversal Normal sinus rhythm Rightward axis ST elevation, consider inferior injury or acute infarct ACUTE TN Abnormal ECG Electronically Signed By: Jason Shah [id number]
--- NOTE | 2016-06-30 17:25 | PN ---
DATE: 06/29/2016 CARDIOLOGY FOLLOWUP SUBJECTIVE: The patient with no chest pain or pressure. No palpitations, feeling better. No groin pain. MEDICATIONS: Reviewed. PHYSICAL EXAMINATION: VITAL SIGNS: Temperature 97.9, heart rate of 8, blood pressure 112/56, respiration rate of 18, saturating 97%. HEENT: Normocephalic, atraumatic. Pupils are equal. CARDIOVASCULAR: Regular rate and rhythm. PULMONARY: No wheezes. GASTROINTESTINAL: Soft, nontender. EXTREMITIES: Trivial edema. VASCULAR: Right femoral with no bleeding, no hematoma. ASSESSMENT AND PLAN: 1. Chest pain has resolved now. 2. Mildly abnormal troponin consistent with myopericarditis with normal coronary. 3. History of mild cardiomyopathy. RECOMMENDATIONS: Continue with the current cardiac care. Beta kathe as tolerated. Off of statin due to elevated CK. Dictated By: JOSÉ MIGUEL MEEK MD AV/NICOLE Conf#: [id number] DID#: [id number] CC: JUDIT RODRIGUEZ NP;*EndCC*
== END 2016-06-29 15:35 | disposition home or self-care (01) | DRG 281 ==
LOC: E/R 08:48 → SDS 13:30 → CCL 13:30 → SDS 13:31 → CCL 15:30 → MS4 15:30
PROVIDERS: ADMIT Internal Medicine Interventional Cardiology; ATTEND Family Medicine
PROC: 4A023N7 Measurement of Cardiac Sampling and Pressure, Left Heart, Percutaneous Approach (ICD-10-PCS; principal; 2016-06-27)
PROC: B2051ZZ Plain Radiography of Left Heart using Low Osmolar Contrast (ICD-10-PCS; 2016-06-27)
DX: I21.4 Non-ST elevation (NSTEMI) myocardial infarction (principal); I31.9 Disease of pericardium, unspecified; M62.82 Rhabdomyolysis; I51.81 Takotsubo syndrome; I20.1 Angina pectoris with documented spasm
CPT/HCPCS: 36415; 71010; 80048; 80053; 80061; 82550; 82553; 83735; 84439; 84443; 84484; 85025; 85610; 85651; 85730; 86140; 93005; 93306; 93458; 96374; C1769; C1887; C1894; J1644; J7030